=== PATIENT | male | born 1985 | race Two or more races ===

== ENCOUNTER 2019-07-14 22:25 | Emergency (ER) | payer BC, OTHER ==
[~2019-07-14] VITALS: Ht 180.3 cm; Wt 99.8 kg
--- NOTE | 2019-07-14 22:40 | NUR ---
ED Nurse Note: Patient walked in due to right ankle pain S/P trip and fall while running on wednesday. As per patient, he took OTC pain medication but doesnt alleviate the pain. Alert and oriented, verbally responisve. No SOB. Afebrile. VSS.
[2019-07-14] MEDS ORDERED: HYDROcodone/Acetamin 5/325 tab ORAL ONE (23:00)
[2019-07-14] MEDS ORDERED: Desmopressin (DDAVP) Inj IV ONE (23:00)
--- NOTE | 2019-07-14 23:00 | NUR ---
ED Nurse Note: Pt refused xray. notified.
--- NOTE | 2019-07-14 23:09 | Emergency Room Report ---
History of Present Illness General Chief Complaint: Lower Extremity Injury Source: Patient Present Illness HPI Is a 33-year-old male with past medical history of hemophilia A. He presents with chief complaint of right ankle pain. He said he was jogging 4 days ago. He tripped and rolled his ankle and even pavement. It was doing better until couple days ago. Now is more swollen and painful. Now with bruising. He is been putting Arnaud wrap on it and is not helping much. Pain is 8 out of 10. Worse with ambulating. Better with rest. Denies any other complaint. No nausea no vomiting. No fever chills. It has been made it years since he had to receive vasopressin for his hemophilia. Allergies: Coded Allergies: No Known Allergies (Unverified , 07/14/19) Patient History Past Medical History: see triage record, old chart reviewed Past Surgical History: none Pertinent Family History: none Social History: Denies: smoking Immunizations: other Reviewed Nursing Documentation: PMH: Agreed; PSxH: Agreed Nursing Documentation-PM Past Medical History: No History, Except For Review of Systems Eye: Denies: eye pain, blurred vision ENT: Denies: ear pain, nose congestion, throat swelling Respiratory: Denies: cough, shortness of breath Cardiovascular: Denies: chest pain, palpitations Gastrointestinal: Denies: abdominal pain, diarrhea, nausea, vomiting Musculoskeletal: Reports: joint pain; Denies: back pain Skin: Denies: rash Neurological: Denies: headache, numbness Endocrine: Denies: increased thirst, increased urine Hematologic/Lymphatic: Denies: easy bruising All Other Systems: negative except mentioned in HPI Physical Exam Vital Signs Date Time Temp Pulse Resp B/P (MAP) Pulse Ox O2 Delivery O2 Flow Rate FiO2 07/14/19 22:37 98.4 59 18 138/89 (105) 98 Room Air Vitals normal Sp02 EP Interpretation: reviewed, normal General Appearance: well appearing, no apparent distress, alert Head: normocephalic, atraumatic Eyes: bilateral eye PERRL, bilateral eye EOMI ENT: hearing grossly normal, normal pharynx Neck: full range of motion, supple, no meningismus Respiratory: chest non-tender, lungs clear, normal breath sounds Cardiovascular #1: regular rate, rhythm, no murmur Gastrointestinal: normal bowel sounds, non tender, no mass, no organomegaly, no bruit, non-distended Musculoskeletal: back normal, normal range of motion, other - Right ankle: He has edema and ecchymosis. Ankle is otherwise stable. Pulse normal. Psychiatric: mood/affect normal Medical Decision Making Diagnostic Impression: Primary Impression: Right ankle sprain Qualified Codes: S93.401A - Sprain of unspecified ligament of right ankle, initial encounter Additional Impression: Hemarthrosis involving ankle and foot Qualified Codes: M25.071 - Hemarthrosis, right ankle; M25.074 - Hemarthrosis, right foot ER Course Ankle sprain and hemarthrosis because of hemophilia. Patient refused x-rays. I order DDAVP. No evidence of any fracture dislocation. Ankles otherwise stable. Will discharge home. Last Vital Signs Date Time Temp Pulse Resp B/P (MAP) Pulse Ox O2 Delivery O2 Flow Rate FiO2 07/14/19 22:37 98.4 59 18 138/89 (105) 98 Room Air Status: improved Disposition: HOME, SELF-CARE Condition: Stable Scripts Ibuprofen* (MOTRIN*) 600 Mg Tablet 600 MG ORAL THREE TIMES A DAY, #30 TAB 0 Refills Prov: Braxton Castano MD 07/15/19 Hydrocodone/Acetaminophen 5-325* (HYDROCODONE/ACETAMINOPHEN 5-325*) 1 Each Tablet 1 TAB ORAL Q6H PRN for For Pain, #15 TAB 0 Refills Prov: Braxton Castano MD 07/15/19 Patient Instructions: Ankle Sprain Additional Instructions: Elevate the ankle. Use crutches as needed. Follow-up with your doctor in 7 days. Return if worse. Braxton Castnao MD Jul 14, 2019 23:09
--- NOTE | 2019-07-15 00:17 | NUR ---
ED Nurse Note: Desmopressin inj ampule unable to scan. Addendum: 07/15/19 at 0040 by [email or web address] Medication was administered.
[2019-07-15] MEDS ORDERED: HYDROCODON-ACE1 EA15 ORAL (00:22)
[2019-07-15] MEDS ORDERED: IBUPROFEN600 MG ORAL (00:22)
[2019-07-15 00:39] VITALS: BP 138/89
--- NOTE | 2019-07-15 00:39 | NUR ---
ED Nurse Note: Pt cleared by ERMD for discharge. DC instructions/prescription was given and explained to pt and verbalized understanding of teachings. All medical deviecs such as ID band removed. Pt is AAO x4, ambulatory and left with all personal belongings. Accompanied by family member.
== END 2019-07-15 00:39 | disposition home or self-care (01) ==
LOC: EMR 23:10
DX: S93.401A Sprain of unspecified ligament of right ankle, initial encounter (principal); M25.071 Hemarthrosis, right ankle; X50.1XXA Overexertion from prolonged static or awkward postures, initial encounter; Y93.02 Activity, running; Y92.9 Unspecified place or not applicable
CPT/HCPCS: 96374; 99284; J2597